=== PATIENT | male | born 2005 | race Caucasian/White ===

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

== ENCOUNTER 2024-04-22 05:30 | Emergency (ER) | payer OTHER, SELFPAY ==
[2024-04-22 05:39] VITALS: BP 152/113; PULSE 84; RESP 16; TEMP 36.9; O2SAT 99; BMI 22.8
[2024-04-22 06:00] VITALS: PULSE 88; O2SAT 100
--- NOTE | 2024-04-22 06:01 | XR_ITS ---
FINAL REPORT CLINICAL HISTORY: pain COMPARISON: None FINDINGS: LEFT SHOULDER Three views of the left shoulder were obtained. There is no acute fracture or dislocation. Visualized joint spaces are normally aligned. Soft tissues are unremarkable. IMPRESSION: No acute bony abnormality. Reviewed, Interpreted and Dictated by Kaiden Bunch MD Transcribed by Abigail Le Authenticated and [facility]
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
[2024-04-22] MEDS: LIDOCAINE 5% TRANSDERMAL PATCH 1 EACH TP (06:25)
[2024-04-22 06:30] VITALS: BP 134/98; PULSE 85; O2SAT 100
[2024-04-22 07:00] VITALS: BP 130/92; PULSE 81; O2SAT 99
[2024-04-22 08:02] VITALS: BP 142/92; PULSE 81; RESP 18; TEMP 36.9; O2SAT 98
== END 2024-04-22 08:03 | disposition home or self-care (01) ==
PROVIDERS: Emergency Provider Emergency Medicine
DX: M25.512 Pain in left shoulder (principal)
CPT/HCPCS: 73030; 99283